=== PATIENT | male | born 1955 | race Two or more races ===

== ENCOUNTER → 2019-03-21 | Outpatient (REF) | payer BC | LOC: M LAB LCGH 15:57 | PROVIDERS: ATTEND Surgery | DX: Z86.010 Personal history of colon polyps (principal) ==

== ENCOUNTER → 2023-09-19 | Outpatient (REF) | payer MEDICARE, BC | LOC: M SFHCDERM 11:48 | PROVIDERS: ATTEND Physician Assistant | DX: L71.1 Rhinophyma (principal) ==

== ENCOUNTER → 2024-01-30 | Outpatient (CLI) | payer BC, MEDICARE | LOC: M PLAIMG 08:23 | PROVIDERS: ATTEND Internal Medicine Critical Care Medicine | DX: R91.1 Solitary pulmonary nodule (principal); I25.10 Atherosclerotic heart disease of native coronary artery without angina pectoris; I70.0 Atherosclerosis of aorta; J47.9 Bronchiectasis, uncomplicated; J98.11 Atelectasis; E04.1 Nontoxic single thyroid nodule ==